=== PATIENT | female | born 1990 | race Hispanic/Latino ===

== ENCOUNTER 2020-07-18 12:08 | Emergency (ER) | payer OTHER ==
[~2020-07-18] VITALS: Ht 165.1 cm; Wt 160.2 kg
[2020-07-18] MEDS ORDERED: ALBU83IN INH (12:19)
[2020-07-18] MEDS ORDERED: METF500T13 PO (12:19)
[2020-07-18] MEDS ORDERED: IPRATROPIUM HFA INHALER 12.9 GRAMS (ATROVENT HFA) INH ONE (13:10)
--- NOTE | 2020-07-18 13:27 | REP ---
INDICATION: sob COMPARISON: None. TECHNIQUE: PA/Lateral FINDINGS: Lungs: Clear, no infiltrate. Heart: Normal in size. Mediastinum: Mediastinal silhouette unremarkable. Pleural angles: Unremarkable.. Bones and soft tissues: Unremarkable. IMPRESSION: No acute pulmonary disease. <Electronically signed by Choco Martinez > 07/18/20 [id number]
[2020-07-18] MEDS ORDERED: ARNU1INH PO (14:18)
[2020-07-18 14:30] VITALS: BP 125/86
== END 2020-07-18 15:05 | disposition home or self-care (01) ==
LOC: M ED 12:08
DX: J45.901 Unspecified asthma with (acute) exacerbation (principal); E11.9 Type 2 diabetes mellitus without complications; Z79.84 Long term (current) use of oral hypoglycemic drugs

== ENCOUNTER 2020-10-07 12:22 | Emergency (ER) | payer OTHER ==
[~2020-10-07] VITALS: Ht 172.7 cm; Wt 155.9 kg
[2020-10-07 12:22] VITALS: BP 161/84
[~2020-10-07 12:22] MED LIST: ALBU83IN INH; ARNU1INH PO; METF500T13 PO
--- NOTE | 2020-10-07 15:42 | REP ---
INDICATION: swelling lateral Left ankle, swelling, twisted popped. COMPARISON: None. TECHNIQUE: Four views FINDINGS: Soft tissue swelling anterolateral aspect of the ankle. The distal tibia and fibula show no definite acute fracture. Some slight irregularity of the distal tip of the fibula and lateral margin of the talus but I cannot confirm a definite acute avulsion or intra-articular loose body there is a 3.8 mm talar dome lucency at its lateral margin on the mortise view consistent with the talar dome osteochondral defect possibility of a loose body in the lateral aspect of the mortise joint is raised. No fracture tibial plafond and or medial malleolus. Subtalar joints are intact. There is an os trigonum evident. Prominent Achilles insertional spur and slightly smaller plantar calcaneal spur noted. Talonavicular and calcaneocuboid joints are normal. Visualized tarsal bones and their articulations with each other and the proximal metatarsals seen in a limited fashion, no significant finding. IMPRESSION: 1. 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 A small intra-articular loose body is not excluded on this study but not definitely identified. 2. Soft tissue swelling anterolateral aspect of the ankle. No evidence of a distal tibial fracture. Subtalar joints intact. Calcaneus with Achilles and plantar spurs are noted, otherwise it and articulations of the hindfoot and tarsal bones unremarkable. <Electronically signed by Salty Pabon > 10/07/20 [id number]
--- NOTE | 2020-10-07 16:43 | REP ---
INDICATION: twist and pop to lateral Left ankle, reccom by ortho. COMPARISON: Ankle series this date TECHNIQUE: Axial soft tissue and bone window images with both coronal and sagittal bone window reconstructions reviewed. FINDINGS: The ankle mortise joint is symmetric and preserved. There is a 4 mm lateral corner talar dome osteochondral defect but I do not see a definite loose body there are small spurs from the inferolateral margin of the vertical talus and at the inferior margin of the medial malleolus. No loose bodies in the mortise joint. No distal tibial fracture of the medial malleolus or tibial plafond. There is an os trigonum abutting the posterior process of the talus that may be unfused or ununited bone. I suspect this is an anatomic variation as it is smoothly marginated, nothing acute. There are plantar and Achilles insertional spurs noted. Achilles tendon grossly unremarkable. Calcaneus shows subtalar joints intact without fracture. Talonavicular and calcaneocuboid joints along with visible tarsal bones and proximal metatarsal articulations with them, all intact. Some soft tissue swelling anterolateral aspect of the ankle in the subcutaneous fat. IMPRESSION: 1. Confirmation of a 4 mm talar dome osteochondral defect in the lateral talar dome as seen on radiograph but no intra-articular loose body at the mortise joint. 2. Prominent os trigonum and unfused ossification center or accessory ossicle adjacent to it as anatomic variation. Posterior spurring from that talus at the margin of the posterior subtalar joint 3. Heel spurs with intact appearance of the Achilles tendon 4. No visible or displaced fracture/avulsion off the distal tibia and fibula. There are small spurs of the distal fibula as on radiograph and another small spur peripherally at the inferior aspect of the vertical margin of the lateral talus. No other significant bony finding. <Electronically signed by Salty Pabon > 10/07/20 [id number]
== END 2020-10-07 16:55 | disposition home or self-care (01) ==
LOC: M ED 12:22
DX: S82.892A Other fracture of left lower leg, initial encounter for closed fracture (principal); X50.1XXA Overexertion from prolonged static or awkward postures, initial encounter; Y92.89 Other specified places as the place of occurrence of the external cause; Y93.9 Activity, unspecified; Y99.0 Civilian activity done for income or pay; M77.32 Calcaneal spur, left foot; E11.9 Type 2 diabetes mellitus without complications; Z79.84 Long term (current) use of oral hypoglycemic drugs; Z79.899 Other long term (current) drug therapy

== ENCOUNTER 2020-10-23 12:15 | Emergency (ER) | payer OTHER ==
[~2020-10-23] VITALS: Ht 170.2 cm; Wt 157.8 kg
[2020-10-23] MEDS ORDERED: KETOROLAC 30 MG/ML 1ML VIAL IM ONE (14:50)
[2020-10-23] MEDS ORDERED: LIDOCAINE 5% (LIDODERM) PATCH TD ONE (14:50)
[2020-10-23 16:43] VITALS: BP 137/74
[2020-10-23] MEDS ORDERED: **NOTE PATIENT COMMENT** MISC XX SCH (21:00)
[2020-10-24] MEDS ORDERED: METH-1164 PO (14:45)
== END 2020-10-23 16:51 | disposition home or self-care (01) ==
LOC: M ED 12:15
DX: M54.10 Radiculopathy, site unspecified (principal); M54.42 Lumbago with sciatica, left side; Z79.899 Other long term (current) drug therapy
CPT/HCPCS: 80047; 84702; 96372; 99283; J1885

== ENCOUNTER 2020-12-05 08:30 | Emergency (ER) | payer OTHER ==
[~2020-12-05] VITALS: Ht 172.7 cm; Wt 350.0 kg
[~2020-12-05 08:30] MED LIST changes: +METH-1164 PO
[2020-12-05 10:39] LABS: BASO % 0.4 % (0.0-1.0); EOS # 0.2 10^3/uL (0.0-0.5); EOS % 1.5 % (0.0-3.0); HEMATOCRIT 42.3 % (36.0-47.0); HEMOGLOBIN 13.3 g/dl (12.0-15.5); LYMPH # 2.8 10^3/uL (1.5-5.0); LYMPH % 27.3 % (24.0-44.0); MEAN CORPUSCULAR HEMOGLOBIN 26.4 pg (27.0-33.0); MEAN CORPUSCULAR HGB CONC 31.4 g/dl (32.0-36.5); MEAN CORPUSCULAR VOLUME 83.9 fl (80.0-96.0); MONO # 0.8 10^3/uL (0.0-0.8); MONO % 8.3 % (2.0-8.0); NEUTROPHILS # 6.3 10^3/uL (1.5-8.5); NEUTROPHILS % 62.2 % (36.0-66.0); PLATELET COUNT, AUTOMATED 378 10^3/uL (150-450); RED BLOOD COUNT 5.04 10^6/uL (4.00-5.40); WHITE BLOOD COUNT 10.1 10^3/uL (4.0-10.0)
[2020-12-05 10:58] LABS: INR 0.95; PROTHROMBIN TIME 13.1 SECONDS (12.7-14.5)
[2020-12-05 11:01] LABS: D-DIMER QUANT 298.22 ng/ml (<500)
--- NOTE | 2020-12-05 11:02 | REP ---
INDICATION: Syncope. COMPARISON: None. TECHNIQUE: Helical scanning is acquired. 5 mm axial images were reformatted. Coronal MPR images were generated. FINDINGS: Bone window settings demonstrate an intact bony calvarium. There is no evidence of skull fracture or incidental bony calvarial lesion. The visualized paranasal sinuses appear clear. No intraorbital abnormality is seen. On soft tissue window setting images; the lateral, third, and fourth ventricles are normal in size and position. Martinez-white differentiation pattern is normal above and below the tentorium. There are is no evidence of intracranial hemorrhage. No mass, edema, infarction, or midline shift is seen. No extra-axial fluid collection is appreciated. IMPRESSION: Negative noncontrast head CT. <Electronically signed by Skyler Crespo > 12/05/20 [id number]
[2020-12-05 11:25] LABS: BLOOD UREA NITROGEN 10 MG/DL (7-18); CALCIUM LEVEL 9.5 MG/DL (8.5-10.1); CARBON DIOXIDE LEVEL 29 MEQ/L (21-32); CHLORIDE LEVEL 106 MEQ/L (98-107); CK-MB VALUE MASS 1.4 NG/ML (<3.6); CPK CREATINE PHOSPHOKINASE 57 U/L (26-192); CREATININE FOR GFR 0.51 MG/DL (0.55-1.30); GLOMERULAR FILTRATION RATE > 60.0 (>60); GLUCOSE, FASTING 82 MG/DL (70-100); MAGNESIUM LEVEL 2.1 MG/DL (1.8-2.4); MB/CK RELATIVE INDEX 2.46 (< OR =4); POTASSIUM SERUM 4.4 MEQ/L (3.5-5.1); SODIUM LEVEL 141 MEQ/L (136-145); THYROID STIMULATING HORMONE 0.694 uIU/ML (0.358-3.740); TROPONIN I < 0.02 NG/ML (< 0.10)
[2020-12-05 11:46] LABS: AMPHETAMINES LEVEL URINE NEGATIVE (NEGATIVE); BARBITURATES URINE NEGATIVE (NEGATIVE); BENZODIAZEPINES URINE NEGATIVE (NEGATIVE); CANNABINOIDS URINE NEGATIVE (NEGATIVE); COCAINE METABOLITE URINE NEGATIVE (NEGATIVE); METHADONE URINE NEGATIVE (NEGATIVE); OPIATES URINE NEGATIVE (NEGATIVE); PHENCYCLIDINE URINE NEGATIVE (NEGATIVE)
[2020-12-05 12:31] VITALS: BP 123/85
--- NOTE | 2020-12-05 19:21 | ECGEPIP ---
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
== END 2020-12-05 12:51 | disposition home or self-care (01) ==
LOC: M ED 08:30
DX: R55 Syncope and collapse (principal); E11.9 Type 2 diabetes mellitus without complications; J45.909 Unspecified asthma, uncomplicated; E66.01 Morbid (severe) obesity due to excess calories

== ENCOUNTER 2022-04-02 10:42 | Emergency (ER) | payer OTHER ==
[~2022-04-02] VITALS: Ht 175.3 cm; Wt 116.8 kg
[~2022-04-02 10:42] MED LIST changes: +ALBU2.5V10 INH; -ALBU83IN INH
[2022-04-02] MEDS ORDERED: PRIL20TA2 PO (11:20)
[2022-04-02] MEDS ORDERED: ONDANSETRON 4MG ORAL DISINTEGRATING TAB PO ONE (13:00)
[2022-04-02] MEDS ORDERED: MECLIZINE 25 MG TABLET PO ONE (13:00)
[2022-04-02] MEDS ORDERED: MECL-86 PO (14:02)
[2022-04-02] MEDS ORDERED: ONDA4TAB6 PO (14:02)
[2022-04-02 14:26] VITALS: BP 103/54
== END 2022-04-02 14:28 | disposition home or self-care (01) ==
LOC: M ED 10:42
DX: H81.10 Benign paroxysmal vertigo, unspecified ear (principal); J45.909 Unspecified asthma, uncomplicated; R00.1 Bradycardia, unspecified; E11.9 Type 2 diabetes mellitus without complications; K21.9 Gastro-esophageal reflux disease without esophagitis; Z79.51 Long term (current) use of inhaled steroids; Z79.899 Other long term (current) drug therapy

== ENCOUNTER 2022-11-01 22:17 | Emergency (ER) | payer OTHER ==
[~2022-11-01] VITALS: Ht 170.2 cm; Wt 112.3 kg
[~2022-11-01 22:17] MED LIST changes: +MECL-86 PO; +ONDA4TAB6 PO; +PRIL20TA2 PO
[2022-11-01 23:01] LABS: BASO # 0.1 10^3/uL (0.0-0.2); BASO % 0.5 % (0.0-1.0); EOS # 0.1 10^3/uL (0.0-0.5); HEMATOCRIT 41.7 % (36.0-47.0); HEMOGLOBIN 13.3 g/dl (12.0-15.5); LYMPH # 3.7 10^3/uL (1.5-5.0); LYMPH % 37.6 % (24.0-44.0); MEAN CORPUSCULAR HEMOGLOBIN 27.7 pg (27.0-33.0); MEAN CORPUSCULAR HGB CONC 31.9 g/dl (32.0-36.5); MEAN CORPUSCULAR VOLUME 86.9 fl (80.0-96.0); MONO # 0.6 10^3/uL (0.0-0.8); MONO % 6.1 % (2.0-8.0); NEUTROPHILS # 5.3 10^3/uL (1.5-8.5); NEUTROPHILS % 54.4 % (36.0-66.0); PLATELET COUNT, AUTOMATED 358 10^3/uL (150-450); WHITE BLOOD COUNT 9.8 10^3/uL (4.0-10.0)
[2022-11-01 23:11] LABS: APPEARANCE, URINE CLOUDY (CLEAR); BACTERIA, URINE AUTO 1+ (NEGATIVE); BILIRUBIN, URINE AUTO NEGATIVE (NEGATIVE); BLOOD, URINE BLOOD 2+ (NEGATIVE); COLOR, URINE YELLOW (YELLOW); GLUCOSE, URINE (UA) AUTO NEGATIVE (NEGATIVE); KETONE, URINE AUTO NEGATIVE (NEGATIVE); LEUKOCYTE ESTERASE, URINE AUTO 1+ (NEGATIVE); MUCUS, URINE SMALL (NEGATIVE); NITRITE, URINE AUTO NEGATIVE (NEGATIVE); PROTEIN, URINE AUTO NEGATIVE (NEGATIVE); RBC, URINE AUTO 5 /HPF (0-3); SPECIFIC GRAVITY URINE AUTO 1.027 (1.002-1.035); SQUAMOUS EPITHELIAL CELL UR AU 15 /HPF (0-6); WBC, URINE AUTO 6 /HPF (0-3)
[2022-11-01 23:14] LABS: BLOOD UREA NITROGEN 9 MG/DL (9-23); CALCIUM LEVEL 8.8 MG/DL (8.5-10.1); CARBON DIOXIDE LEVEL 28 MMOL/L (20-31); CHLORIDE LEVEL 107 MMOL/L (98-107); CREATININE FOR GFR 0.57 MG/DL (0.55-1.30); GLOMERULAR FILTRATION RATE > 60.0 (>60); GLUCOSE, FASTING 87 MG/DL (60-100); SODIUM LEVEL 141 MMOL/L (136-145)
[2022-11-02 04:12] VITALS: BP 122/57; TEMP 97.5; O2SAT 100
[2022-11-02] MEDS ORDERED: MACR100C43 PO (04:39)
== END 2022-11-02 04:51 | disposition home or self-care (01) ==
LOC: M ED 22:17
DX: O23.41 Unspecified infection of urinary tract in pregnancy, first trimester (principal); O20.8 Other hemorrhage in early pregnancy; Z3A.08 8 weeks gestation of pregnancy; Z79.52 Long term (current) use of systemic steroids; Z79.83 Long term (current) use of bisphosphonates; Z79.899 Other long term (current) drug therapy

== ENCOUNTER 2023-09-20 20:20 | Emergency (ER) | payer OTHER ==
[~2023-09-20] VITALS: Ht 167.6 cm; Wt 109.4 kg
[~2023-09-20 20:20] MED LIST changes: +MACR100C43 PO; +ONDA-282 PO; -ONDA4TAB6 PO
[2023-09-20 21:12] LABS: BASO % 0.2 % (0.0-1.0); EOS % 0.2 % (0.0-3.0); HEMATOCRIT 38.6 % (36.0-47.0); HEMOGLOBIN 12.7 g/dl (12.0-15.5); LYMPH # 2.3 10^3/uL (1.5-5.0); LYMPH % 17.1 % (24.0-44.0); MEAN CORPUSCULAR HEMOGLOBIN 28.9 pg (27.0-33.0); MEAN CORPUSCULAR HGB CONC 32.9 g/dl (32.0-36.5); MEAN CORPUSCULAR VOLUME 87.9 fl (80.0-96.0); MONO % 7.7 % (2.0-8.0); NEUTROPHILS % 74.4 % (36.0-66.0); PLATELET COUNT, AUTOMATED 385 10^3/uL (150-450); RED BLOOD COUNT 4.39 10^6/uL (4.00-5.40); WHITE BLOOD COUNT 13.5 10^3/uL (4.0-10.0)
[2023-09-20 21:39] LABS: BLOOD UREA NITROGEN 13 MG/DL (9-23); CALCIUM LEVEL 9.4 MG/DL (8.5-10.1); CARBON DIOXIDE LEVEL 26 MMOL/L (20-31); CHLORIDE LEVEL 110 MMOL/L (98-107); CREATININE FOR GFR 0.77 MG/DL (0.55-1.30); GLOMERULAR FILTRATION RATE > 60.0 (>60); GLUCOSE, FASTING 68 MG/DL (60-100); POTASSIUM SERUM 4.2 MMOL/L (3.5-5.1); SODIUM LEVEL 142 MMOL/L (136-145)
[2023-09-20 21:54] LABS: HCG, SERUM QUANTITATIVE 4526.1 MIU/ML (<4.2)
[2023-09-21 01:15] VITALS: BP 129/70; TEMP 98; O2SAT 98
== END 2023-09-21 01:20 | disposition home or self-care (01) ==
LOC: M ED 20:20
DX: O20.8 Other hemorrhage in early pregnancy (principal); Z3A.01 Less than 8 weeks gestation of pregnancy; O24.311 Unspecified pre-existing diabetes mellitus in pregnancy, first trimester; O99.841 Bariatric surgery status complicating pregnancy, first trimester; Z87.59 Personal history of other complications of pregnancy, childbirth and the puerperium; Z79.84 Long term (current) use of oral hypoglycemic drugs; Z79.899 Other long term (current) drug therapy

== ENCOUNTER 2023-11-27 10:53 | Emergency (ER) | payer OTHER ==
[~2023-11-27] VITALS: Ht 167.6 cm; Wt 106.0 kg
[2023-11-27] MEDS ORDERED: SUPECAP7 PO (11:02)
[2023-11-27] MEDS ORDERED: NOXI1TAB PO (11:02)
[2023-11-27] MEDS ORDERED: MULTTAB20 PO (11:02)
[2023-11-27 12:22] LABS: BASO % 0.4 % (0.0-1.0); EOS # 0.1 10^3/uL (0.0-0.5); EOS % 0.8 % (0.0-3.0); HEMATOCRIT 36.2 % (36.0-47.0); HEMOGLOBIN 12.1 g/dl (12.0-15.5); LYMPH # 1.6 10^3/uL (1.5-5.0); LYMPH % 21.4 % (24.0-44.0); MEAN CORPUSCULAR HEMOGLOBIN 29.2 pg (27.0-33.0); MEAN CORPUSCULAR HGB CONC 33.4 g/dl (32.0-36.5); MEAN CORPUSCULAR VOLUME 87.4 fl (80.0-96.0); MONO # 0.6 10^3/uL (0.0-0.8); MONO % 8.2 % (2.0-8.0); NEUTROPHILS # 5.3 10^3/uL (1.5-8.5); NEUTROPHILS % 68.9 % (36.0-66.0); PLATELET COUNT, AUTOMATED 284 10^3/uL (150-450); RED BLOOD COUNT 4.14 10^6/uL (4.00-5.40); WHITE BLOOD COUNT 7.7 10^3/uL (4.0-10.0)
[2023-11-27 12:52] LABS: APPEARANCE, URINE HAZY (CLEAR); BACTERIA, URINE AUTO NEGATIVE (NEGATIVE); BILIRUBIN, URINE AUTO NEGATIVE (NEGATIVE); BLOOD, URINE BLOOD NEGATIVE (NEGATIVE); COLOR, URINE YELLOW (YELLOW); GLUCOSE, URINE (UA) AUTO NEGATIVE (NEGATIVE); KETONE, URINE AUTO TRACE mg/dL (NEGATIVE); LEUKOCYTE ESTERASE, URINE AUTO NEGATIVE (NEGATIVE); MUCUS, URINE SMALL (NEGATIVE); NITRITE, URINE AUTO NEGATIVE (NEGATIVE); PROTEIN, URINE AUTO NEGATIVE (NEGATIVE); RBC, URINE AUTO 1 /HPF (0-3); SPECIFIC GRAVITY URINE AUTO 1.018 (1.002-1.035); SQUAMOUS EPITHELIAL CELL UR AU 12 /HPF (0-6); UROBILINOGEN, URINE AUTO 0.2 mg/dL (0.0-2.0); WBC, URINE AUTO 0 /HPF (0-3)
[2023-11-27 13:26] LABS: BLOOD UREA NITROGEN < 5 MG/DL (9-23); CALCIUM LEVEL 9.6 MG/DL (8.5-10.1); CARBON DIOXIDE LEVEL 22 MMOL/L (20-31); CHLORIDE LEVEL 111 MMOL/L (98-107); CREATININE FOR GFR 0.46 MG/DL (0.55-1.30); GLOMERULAR FILTRATION RATE > 60.0 (>60); GLUCOSE, FASTING 99 MG/DL (60-100); HCG, SERUM QUANTITATIVE 30885.5 MIU/ML (<4.2); POTASSIUM SERUM 3.8 MMOL/L (3.5-5.1); SODIUM LEVEL 140 MMOL/L (136-145)
[2023-11-27 13:51] VITALS: BP 129/80; TEMP 98.1; O2SAT 99
== END 2023-11-27 13:50 | disposition home or self-care (01) ==
LOC: M ED 10:53 → MERGE 10:53 → M ED 13:50
DX: O20.8 Other hemorrhage in early pregnancy (principal); Z3A.14 14 weeks gestation of pregnancy; O99.842 Bariatric surgery status complicating pregnancy, second trimester; Z79.899 Other long term (current) drug therapy